=== PATIENT | female | born 1990 | race Caucasian/White ===

== ENCOUNTER 2019-07-20 15:38 | Emergency (ER) | payer OTHER ==
[~2019-07-20] VITALS: Ht 167.6 cm; Wt 86.2 kg
[2019-07-20 16:42] LABS: BILIRUBIN NEGATIVE (NEGATIVE); BLOOD TRACE-INTACT (NEGATIVE); CLARITY CLEAR (CLEAR); COLOR YELLOW (YELLOW); GLUCOSE NEGATIVE (NEGATIVE); KETONE NEGATIVE (NEGATIVE); LEUKO ESTERASE NEGATIVE (NEGATIVE); NITRITE NEGATIVE (NEGATIVE); SPECIFIC GRAVITY 1.015 (1.005-1.030); UROBILINOGEN 0.2 E.U./dl (0.2-1.0)
[2019-07-20 16:47] LABS: BASO % 0.1 % (0.0-1.0); EOS % 0.4 % (1.0-4.0); HEMOGLOBIN 12.6 g/dl (12.0-16.0); LYMPH # 0.6 10*3/uL (1.3-4.4); LYMPH % 7.9 % (27.0-41.0); MEAN CELL VOLUME 95.6 fl (81.0-99.0); MEAN CORPUSCULAR HGB 32.6 pg (27.0-31.0); MEAN CORPUSCULAR HGB CONC 34.1 g/dl (33.0-37.0); MEAN PLATELET VOLUME 9.3 fl (9.6-12.3); MONO # 1.2 10*3/uL (0.1-1.0); MONO % 14.6 % (3.0-9.0); NEUT # 6.1 10*3/uL (2.3-7.9); NEUT % 76.4 % (47.0-73.0); PLATELET COUNT AUTOMATED 256 10*3/uL (130-400); RED BLOOD COUNT 3.87 10*6/uL (4.10-5.10); RED CELL DISTRI WIDTH 12.6 % (0-14.5)
[2019-07-20 17:09] LABS: ALBUMIN 2.6 gm/dl (3.1-4.5); ALKALINE PHOSPHATASE 108 U/L (45-117); BUN 7 mg/dl (7-24); CHLORIDE 105 mmol/L (98-107); CREATININE 0.58 mg/dL (0.55-1.02); POTASSIUM 3.9 mmol/L (3.5-5.1); SGOT/AST 16 IU/L (3-35); SGPT/ALT 16 U/L (12-78); SODIUM 135 mmol/L (136-145)
== END 2019-07-20 17:55 | disposition home or self-care (01) ==
LOC: ED 15:38
PROVIDERS: Emergency Medicine
DX: O26.893 Other specified pregnancy related conditions, third trimester (principal); R10.30 Lower abdominal pain, unspecified

== ENCOUNTER 2020-03-15 22:41 | Emergency (ER) | payer OTHER ==
[~2020-03-15] VITALS: Ht 167.6 cm; Wt 81.6 kg
[2020-03-15] MEDS ORDERED: VIBRAMYCIN100 MG PO (23:05)
== END 2020-03-15 23:31 | disposition home or self-care (01) ==
LOC: ED 22:41
DX: S20.462A Insect bite (nonvenomous) of left back wall of thorax, initial encounter (principal); F17.200 Nicotine dependence, unspecified, uncomplicated; W57.XXXA Bitten or stung by nonvenomous insect and other nonvenomous arthropods, initial encounter; Y93.89 Activity, other specified; Y92.89 Other specified places as the place of occurrence of the external cause; Y99.8 Other external cause status

== ENCOUNTER 2021-10-22 10:08 | Emergency (ER) | payer OTHER ==
[~2021-10-22] VITALS: Wt 78.5 kg
[~2021-10-22 10:08] MED LIST: VIBRAMYCIN100 MG PO
[2021-10-22 10:49] LABS: BASO % 0.3 % (0.0-1.0); EOS # 0.1 10*3/uL (0.0-0.4); EOS % 0.8 % (1.0-4.0); HEMATOCRIT 37.4 % (37.0-47.0); LYMPH # 1.4 10*3/uL (1.3-4.4); LYMPH % 13.6 % (27.0-41.0); MEAN CELL VOLUME 89.7 fl (81.0-99.0); MEAN CORPUSCULAR HGB 30.7 pg (27.0-31.0); MEAN CORPUSCULAR HGB CONC 34.2 g/dl (33.0-37.0); MEAN PLATELET VOLUME 9.2 fl (9.6-12.3); MONO % 9.3 % (3.0-9.0); NEUT # 7.9 10*3/uL (2.3-7.9); NEUT % 75.6 % (47.0-73.0); PLATELET COUNT AUTOMATED 276 10*3/uL (130-400); RED BLOOD COUNT 4.17 10*6/uL (4.10-5.10); RED CELL DISTRI WIDTH 13.2 % (0-14.5); WHITE BLOOD COUNT 10.5 10*3/uL (4.8-10.8)
[2021-10-22 11:11] LABS: ALKALINE PHOSPHATASE 59 U/L (45-117); BUN 5 mg/dl (7-24); CHLORIDE 110 mmol/L (98-107); CREATININE 0.54 mg/dL (0.55-1.02); POTASSIUM 3.6 mmol/L (3.5-5.1); SGOT/AST 16 IU/L (3-35); SGPT/ALT 18 U/L (12-78); SODIUM 139 mmol/L (136-145)
[2021-10-22 11:14] LABS: BETA-HCG, QUANT < 1.0 mIU/mL (1-3)
[2021-10-22] MEDS ORDERED: Motrin,Rufen800 MG PO (13:28)
[2021-10-22] MEDS ORDERED: CLEOCIN HCL150 MG PO (13:28)
== END 2021-10-22 14:00 | disposition home or self-care (01) ==
LOC: ED 10:08
PROVIDERS: Emergency Medicine
DX: K04.7 Periapical abscess without sinus (principal)